=== PATIENT | female | born 2000 | race Caucasian/White ===

== ENCOUNTER 2018-09-23 11:51 | Day surgery (SDC) | payer OTHER, MEDICAID ==
[~2018-09-23] VITALS: Ht 170.2 cm; Wt 127.9 kg
[~2018-09-23 11:51] MED LIST: LEVO0.1T; METF10004 PO; MULTCAP PO; NS 1,000 ML IV ONE; PROBCAP14 PO; XYZASOL2 PO
[2018-09-23] MEDS ORDERED: fentaNYL 100 MCG/2 ML INJECTION (J3010) As Ordered ONE (14:33)
[2018-09-23] MEDS ORDERED: PROPOFOL 200 MG/20 ML VIAL As Ordered ONE (14:45)
[2018-09-23] MEDS ORDERED: LIDOCAINE 2% INJ 100 MG/5 ML SDV (FOR ANES.) As Ordered ONE (14:45)
--- NOTE | 2018-09-23 15:10 | ROOR ---
Patient Name: July Abraham Procedure Date: 09/23/2018 2:48 PM Date of : 2000 Age: 17 Room: [facility] Gender: Female Note Status: Finalized Procedure: Upper GI endoscopy Indications: Epigastric abdominal pain, Functional Dyspepsia, Dyspepsia, Nausea Providers: Xavi NEGRON MD Referring MD: Yoly Nicholson NP Requesting Provider: Medicines: Monitored Anesthesia Care Complications: No immediate complications. Procedure: Pre-Anesthesia Assessment: - The heart rate, respiratory rate, oxygen saturations, blood pressure, adequacy of pulmonary ventilation, and response to care were monitored throughout the procedure. The Endoscope was introduced through the mouth, and advanced to the second part of duodenum. The upper GI endoscopy was accomplished without difficulty. The patient tolerated the procedure well. Findings: The esophagus was normal. The stomach was normal. The examined duodenum was normal. Biopsies were taken with a cold forceps in the gastric antrum, in the second portion of the duodenum and in the third portion of the duodenum for histology. Impression: - Normal esophagus. - Normal stomach. - Normal examined duodenum. - Biopsies were taken with a cold forceps for histology in the gastric antrum, in the second portion of the duodenum and in the third portion of the duodenum. - Non Ulcer Dyspepsia (NUD) suspected. Recommendation: - Call my office in 2 weeks for results of todays biopsies. - Continue Dicyclomine 10 to 20 mg every 4-6 hours as needed for abdominal pain/gas/nausea. - (the script was sent to your pharmacy on file) - Return to referring physician as previously scheduled. Xavi Negron MD Xavi NEGRON MD 09/23/2018 3:10:12 PM Electronically signed by Xavi NEGRON MD Number of Addenda: 0 Note Initiated On: 09/23/2018 2:48 PM Estimated Blood Loss: Estimated blood loss: none.
[2018-09-23 15:30] VITALS: BP 127/85
== END 2018-09-23 15:41 | disposition home or self-care (01) ==
LOC: M OPP 11:51
PROVIDERS: ATTEND Internal Medicine Gastroenterology
DX: K30 Functional dyspepsia (principal); R11.0 Nausea; Z79.84 Long term (current) use of oral hypoglycemic drugs; Z79.899 Other long term (current) drug therapy
CPT/HCPCS: 43239; 88305; J3010

== ENCOUNTER → 2019-01-18 | Outpatient (REF) | payer OTHER, MEDICAID ==
[~2019-01-18] MED LIST changes: -NS 1,000 ML IV ONE
[2019-01-18 14:13] LABS: FOLATE > 24.0 NG/ML (>5.4); VITAMIN B12 LEVEL 396 PG/ML (247-911)
[2019-01-23 08:41] LABS: Methylmalonic Acid 172 nmol/L (0-378)
== END ==
LOC: M LABNEURO 10:34
PROVIDERS: ATTEND Psychiatry & Neurology Neurology
DX: E53.9 Vitamin B deficiency, unspecified (principal)

== ENCOUNTER → 2019-04-14 | Outpatient (CLI) | payer OTHER, MEDICAID ==
[2019-04-14 12:30] LABS: HEMOGLOBIN A1c 5.4 %
[2019-04-14 16:42] LABS: FOLATE 19.6 NG/ML
== END ==
LOC: M LAB 11:13
PROVIDERS: ATTEND Psychiatry & Neurology Neurology
DX: E11.9 Type 2 diabetes mellitus without complications (principal); E53.8 Deficiency of other specified B group vitamins

== ENCOUNTER → 2020-04-24 | Outpatient (REF) | payer OTHER, MEDICAID ==
[2020-04-24 13:38] LABS: HEMATOCRIT 38.6 % (36.0-47.0); HEMOGLOBIN 12.2 g/dl (12.0-15.5); MEAN CORPUSCULAR HEMOGLOBIN 26.5 pg (27.0-33.0); MEAN CORPUSCULAR HGB CONC 31.6 g/dl (32.0-36.5); MEAN CORPUSCULAR VOLUME 83.7 fl (80.0-96.0); PLATELET COUNT, AUTOMATED 266 10^3/uL (150-450); RED BLOOD COUNT 4.61 10^6/uL (4.00-5.40); WHITE BLOOD COUNT 8.9 10^3/uL (4.0-10.0)
[2020-04-24 14:09] LABS: ALBUMIN 3.5 GM/DL (3.2-5.2); ALT/SGPT 21 U/L (12-78); BILIRUBIN,TOTAL 0.4 MG/DL (0.2-1.0); BLOOD UREA NITROGEN 10 MG/DL (7-18); CALCIUM LEVEL 9.1 MG/DL (8.5-10.1); CARBON DIOXIDE LEVEL 29 MEQ/L (21-32); CHLORIDE LEVEL 108 MEQ/L (98-107); CREATININE FOR GFR 0.73 MG/DL (0.55-1.30); FREE T4 0.84 NG/DL (0.76-1.46); GLOMERULAR FILTRATION RATE > 60.0 (>60); GLUCOSE, FASTING 102 MG/DL (70-100); POTASSIUM SERUM 4.4 MEQ/L (3.5-5.1); PROLACTIN 9.1 NG/ML; SODIUM LEVEL 141 MEQ/L (136-145); TOTAL PROTEIN 6.4 GM/DL (6.4-8.2)
[2020-04-24 15:37] LABS: CHLAMYDIA DNA AMPLIFICATION NEGATIVE (NEGATIVE); GC DNA AMPLIFICATION NEGATIVE (NEGATIVE)
[2020-04-24 15:38] LABS: CHLAMYDIA DNA AMPLIFICATION NEGATIVE (NEGATIVE); GC DNA AMPLIFICATION NEGATIVE (NEGATIVE)
[2020-05-02 04:07] LABS: 17 HYDROXY PROGESTERONE 121 ng/dL (.); TESTOSTERONE FREE (DIRECT) 1.3 pg/mL (0.0-4.2)
== END ==
LOC: M PLALAB 09:39
PROVIDERS: ATTEND Advanced Practice Midwife
DX: E28.2 Polycystic ovarian syndrome (principal); E66.01 Morbid (severe) obesity due to excess calories; Z11.3 Encounter for screening for infections with a predominantly sexual mode of transmission; Z01.411 Encounter for gynecological examination (general) (routine) with abnormal findings; Z12.4 Encounter for screening for malignant neoplasm of cervix; Z01.419 Encounter for gynecological examination (general) (routine) without abnormal findings; Z77.9 Other contact with and (suspected) exposures hazardous to health

== ENCOUNTER → 2020-04-29 | Outpatient (CLI) | payer OTHER, MEDICAID ==
--- NOTE | 2020-04-29 18:05 | REP ---
INDICATION: POLYCYSTIC OVARIAN SYNDROME. COMPARISON: None. TECHNIQUE: Transabdominal and transvaginal scanning were performed. FINDINGS: Uterine dimensions are normal at 7.1 x 3.5 x 4.6 cm. Endometrial echo is 0.4 cm thick and centrally placed. No free fluid is seen in the cul-de-sac. Visualized bladder fishman are smooth. Uterus is somewhat retroverted. The right ovary has dimensions of 4.6 x 2.9 x 3.0 cm. It's Doppler flow is present in the right ovary. There is a 2.4 x 1.6 x 2.2 cm hypoechoic follicle cyst in the right ovary. There are multiple tiny cysts in the right ovary. The left ovary dimensions are normal as well at 3.1 x 2.4 x 2.8 cm. It's Doppler flow was present in the left ovary. Multiple tiny cysts are seen in the periphery of the left ovary but the left ovary is not enlarged. IMPRESSION: Normal pelvic sonography. The ovaries are not considered enlarged. There are multiple tiny follicle cysts in each ovary. <Electronically signed by Demetrius Mares > 04/29/20 [id number]
== END ==
LOC: M WHC 10:54
PROVIDERS: ATTEND Advanced Practice Midwife
DX: E28.2 Polycystic ovarian syndrome (principal)

== ENCOUNTER → 2020-05-31 | Outpatient (REF) | payer OTHER, MEDICAID | LOC: M SFHCWAGY 18:56 | PROVIDERS: ATTEND Advanced Practice Midwife | DX: Z12.4 Encounter for screening for malignant neoplasm of cervix (principal) ==

== ENCOUNTER 2020-08-12 21:11 | Emergency (ER) | payer OTHER, MEDICAID ==
[~2020-08-12] VITALS: Ht 170.2 cm; Wt 130.4 kg
[2020-08-12] MEDS ORDERED: METH-1164 PO (21:48)
[2020-08-12] MEDS ORDERED: NAPR-885 PO (21:48)
[2020-08-12] MEDS ORDERED: SPIR-10 PO (21:48)
[2020-08-13] MEDS ORDERED: KETOROLAC 30 MG/ML 1ML VIAL IV ONE (02:05)
[2020-08-13] MEDS ORDERED: diazePAM 10MG/2ML SYRINGE (J3360 PER 5MG) IV ONE (02:05)
[2020-08-13 02:35] LABS: BASO # 0.1 10^3/uL (0.0-0.2); BASO % 0.7 % (0.0-1.0); EOS # 0.4 10^3/uL (0.0-0.5); EOS % 3.1 % (0.0-3.0); HEMATOCRIT 40.9 % (36.0-47.0); HEMOGLOBIN 13.1 g/dl (12.0-15.5); LYMPH # 3.5 10^3/uL (1.5-5.0); LYMPH % 30.2 % (24.0-44.0); MEAN CORPUSCULAR HEMOGLOBIN 27.7 pg (27.0-33.0); MEAN CORPUSCULAR VOLUME 86.5 fl (80.0-96.0); MONO # 0.7 10^3/uL (0.0-0.8); MONO % 6.2 % (2.0-8.0); NEUTROPHILS # 6.9 10^3/uL (1.5-8.5); NEUTROPHILS % 59.5 % (36.0-66.0); PLATELET COUNT, AUTOMATED 280 10^3/uL (150-450); RED BLOOD COUNT 4.73 10^6/uL (4.00-5.40); WHITE BLOOD COUNT 11.5 10^3/uL (4.0-10.0)
[2020-08-13 02:46] LABS: BLOOD UREA NITROGEN 12 MG/DL (7-18); CALCIUM LEVEL 8.8 MG/DL (8.5-10.1); CARBON DIOXIDE LEVEL 27 MEQ/L (21-32); CHLORIDE LEVEL 108 MEQ/L (98-107); CREATININE FOR GFR 0.71 MG/DL (0.55-1.30); GLOMERULAR FILTRATION RATE > 60.0 (>60); GLUCOSE, FASTING 85 MG/DL (70-100); POTASSIUM SERUM 4.2 MEQ/L (3.5-5.1); SODIUM LEVEL 140 MEQ/L (136-145)
--- NOTE | 2020-08-13 03:30 | REPVR ---
PROCEDURE INFORMATION: Exam: CT Lumbar Spine Without Contrast Exam date and time: 08/13/2020 2:01 AM Age: 19 years old Clinical indication: Low back pain; Additional info: Intractable back pain TECHNIQUE: Imaging protocol: Computed tomography images of the lumbar spine without contrast. Radiation optimization: All CT scans at this facility use at least one of these dose optimization techniques: automated exposure control; mA and/or kV adjustment per patient size (includes targeted exams where dose is matched to clinical indication); or iterative reconstruction. COMPARISON: No relevant prior studies available. FINDINGS: Limitations: Examination is limited by motion artifact. Examination is limited by body habitus. Vertebrae: No acute fracture. Normal alignment. Discs/Spinal canal/Neural foramina: Limited evaluation of the spinal canal. Central disc protrusion measuring 8 mm at L4-L5. There is resultant mild to moderate spinal stenosis at the L4-L5 level. Soft tissues: Unremarkable. IMPRESSION: 1. Suboptimal evaluation. 2. No acute fracture. 3. Central disc protrusion measuring 8 mm at L4-L5. 4. There is resultant mild to moderate spinal stenosis at the L4-L5 level. 5. Consider routine follow-up MRI. Electronically signed by: Aris Duckworth On 08/13/2020 03:29:33 AM
[2020-08-13] MEDS ORDERED: VALI5TAB PO (06:31)
[2020-08-13 06:47] VITALS: BP 135/79
--- NOTE | 2020-08-13 12:27 | ED PDOC ---
Post-Departure Follow-Up ct ls spine faxed to dr jackson and zack golden for fu Yanna Donato MD August 13, 2020 12:27
== END 2020-08-13 06:48 | disposition home or self-care (01) ==
LOC: M ED 21:11
DX: M51.26 Other intervertebral disc displacement, lumbar region (principal); M48.061 Spinal stenosis, lumbar region without neurogenic claudication; Z79.899 Other long term (current) drug therapy
CPT/HCPCS: 72131; 80048; 84702; 85025; 96374; 96375; 99284; J1885; J3360

== ENCOUNTER → 2020-08-30 | Outpatient (REF) | payer OTHER, MEDICAID ==
[~2020-08-30] MED LIST changes: +METH-1164 PO; +NAPR-885 PO; +SPIR-10 PO; +VALI5TAB PO
== END ==
LOC: M SFHCWAGY 12:47
PROVIDERS: ATTEND Advanced Practice Midwife
DX: Z11.3 Encounter for screening for infections with a predominantly sexual mode of transmission (principal)

== ENCOUNTER 2020-12-23 22:17 | Emergency (ER) | payer OTHER, MEDICAID ==
[~2020-12-23] VITALS: Ht 170.2 cm; Wt 129.2 kg
[2020-12-23 22:17] VITALS: BP 137/63
== END 2020-12-24 03:00 | disposition left against medical advice (07) ==
LOC: M ED 22:17
DX: Z53.21 Procedure and treatment not carried out due to patient leaving prior to being seen by health care provider (principal)

== ENCOUNTER 2021-06-18 08:21 | Emergency (ER) | payer OTHER, MEDICAID ==
[~2021-06-18] VITALS: Ht 170.2 cm; Wt 122.7 kg
[2021-06-18] MEDS ORDERED: ESCITALOPRAM (08:32)
[2021-06-18] MEDS ORDERED: ACETAMINOPHEN 500 MG TAB PO ONE (09:30)
[2021-06-18 11:16] VITALS: BP 129/70
== END 2021-06-18 11:38 | disposition home or self-care (01) ==
LOC: M ED 08:21
DX: S16.1XXA Strain of muscle, fascia and tendon at neck level, initial encounter (principal); M54.50 Low back pain, unspecified; W01.0XXA Fall on same level from slipping, tripping and stumbling without subsequent striking against object, initial encounter; K21.9 Gastro-esophageal reflux disease without esophagitis; E28.2 Polycystic ovarian syndrome; Z87.01 Personal history of pneumonia (recurrent); K58.9 Irritable bowel syndrome, unspecified; J45.909 Unspecified asthma, uncomplicated; Z79.899 Other long term (current) drug therapy; Y92.481 Parking lot as the place of occurrence of the external cause; Y93.9 Activity, unspecified; Y99.0 Civilian activity done for income or pay

== ENCOUNTER 2021-08-09 02:39 | Emergency (ER) | payer OTHER, MEDICAID ==
[~2021-08-09] VITALS: Ht 170.2 cm; Wt 123.1 kg
[~2021-08-09 02:39] MED LIST changes: +ESCITALOPRAM
[2021-08-09 03:29] LABS: BASO % 0.4 % (0.0-1.0); EOS # 0.3 10^3/uL (0.0-0.5); EOS % 2.7 % (0.0-3.0); HEMATOCRIT 44.1 % (36.0-47.0); HEMOGLOBIN 14.7 g/dl (12.0-15.5); LYMPH % 21.4 % (24.0-44.0); MEAN CORPUSCULAR HEMOGLOBIN 27.9 pg (27.0-33.0); MEAN CORPUSCULAR HGB CONC 33.3 g/dl (32.0-36.5); MEAN CORPUSCULAR VOLUME 83.8 fl (80.0-96.0); MONO # 0.8 10^3/uL (0.0-0.8); MONO % 8.9 % (2.0-8.0); NEUTROPHILS # 6.3 10^3/uL (1.5-8.5); NEUTROPHILS % 66.3 % (36.0-66.0); PLATELET COUNT, AUTOMATED 266 10^3/uL (150-450); RED BLOOD COUNT 5.26 10^6/uL (4.00-5.40); WHITE BLOOD COUNT 9.5 10^3/uL (4.0-10.0)
[2021-08-09 03:40] LABS: ALBUMIN 3.6 GM/DL (3.2-5.2); ALT/SGPT 24 U/L (12-78); BILIRUBIN,DIRECT < 0.1 MG/DL (0.0-0.2); BILIRUBIN,TOTAL 0.4 MG/DL (0.2-1.0); BLOOD UREA NITROGEN 8 MG/DL (7-18); CALCIUM LEVEL 9.1 MG/DL (8.5-10.1); CARBON DIOXIDE LEVEL 22 MEQ/L (21-32); CHLORIDE LEVEL 111 MEQ/L (98-107); CREATININE FOR GFR 0.77 MG/DL (0.55-1.30); GLOMERULAR FILTRATION RATE > 60.0 (>60); GLUCOSE, FASTING 102 MG/DL (70-100); LIPASE 110 U/L (73-393); POTASSIUM SERUM 3.8 MEQ/L (3.5-5.1); SODIUM LEVEL 141 MEQ/L (136-145); TOTAL PROTEIN 7.1 GM/DL (6.4-8.2)
[2021-08-09] MEDS ORDERED: NS 1,000 ML IV ONE ×2 (05:00)
[2021-08-09 06:30] VITALS: BP 118/67
[2021-08-09] MEDS ORDERED: ONDA4TAB6 PO (06:37)
[2021-08-09 06:39] LABS: HCG, SERUM QUALITATIVE NEGATIVE (NEGATIVE)
== END 2021-08-09 06:50 | disposition home or self-care (01) ==
LOC: M ED 02:39
DX: R11.2 Nausea with vomiting, unspecified (principal); R19.7 Diarrhea, unspecified; K58.8 Other irritable bowel syndrome; J45.909 Unspecified asthma, uncomplicated; E28.2 Polycystic ovarian syndrome; F32.A Depression, unspecified; F41.9 Anxiety disorder, unspecified; Z79.899 Other long term (current) drug therapy